=== PATIENT | male | born 1950 | race Caucasian/White ===

== ENCOUNTER 2018-09-13 18:09 | Inpatient (IN) | payer OTHER ==
[~2018-09-13] VITALS: Ht 180.3 cm; Wt 160.0 kg
--- NOTE | 2018-09-13 18:31 | NUR ---
SE RECIBE MASCULINO ALERTA Y ORIENTADO POR VARSHA ESFERAS EN AMBULANCIA.REFIERE QUE PRESENTA DIFICULTAD RESPIRATORIA Y PADECE DE COPD. PRESENTA NON REBREATHING MASK Y LLEGA SATURANDO 81% AL MOMENTO.
[2018-09-13] MEDS ORDERED: ATORVASTATIN CA40 MG (18:37)
[2018-09-13] MEDS ORDERED: CALCIUM 600 +1 EAC7 (18:38)
[2018-09-13] MEDS ORDERED: TAMS0.4C (18:38)
[2018-09-13] MEDS ORDERED: VITAMIN D400 UNI2 (18:38)
[2018-09-13] MEDS ORDERED: SERTRALINE HCL100 MG (18:39)
--- NOTE | 2018-09-13 18:55 | NUR ---
PT ALERTA Y ORIENTADO X3 ESFERAS SE LE ORIENTA SOBRE TX Y REFIERE ENTEDER. SE YARIEL MUESTRAS DE TADEO Y VENOPUNCION CON TECNICAS ASEPTICAS. SE ADMINSITRAN MEDICAMENTOS ORDEANDOS. PT TOLERA TX. PT CONECTADO A MONITOR CARDIACO Y SATUROMETRO DE PULSO.
--- NOTE | 2018-09-14 02:22 | NUR ---
SE RECIBE PACIENTE ALERTA Y ORIENTADO X3, EN CAMA CON BARANDAS ELEVADAS Y CABEZERA A 45 GRADOS, CONECTADO A MONITOR CARDIACO CON OXIMETRIA AREA DE VENOPUCION PATENTE Y RICARDO DE EDEMA EN SALINE LOCK. PACIENTE CON YAQUELIN MASCARILLA AL 100% DE OXIGENO.
--- NOTE | 2018-09-14 07:14 | NUR ---
SE RECIBE PTE ALERTA Y ORIENTADO EN LAS 3 ESFERAS EN CAMA CON BARANDAS ELEVADAS POR SEGURIDAD EN POSICION SEMI-SENTADO. CONECTADO A MONITOR CARDIACO, OXIMETRIA DE PULSO Y ASISTIDO POR YAQUELIN NON REBREATHING MASK AL 100% H/L EN BRAZO DERECHO, EL CUAL SE ENCUENTRA RICARDO DE EDEMA Y ERITEMA. PENDIENTE CONSULTA CON . SE ALINA A PTE EN CAMA CON BARANDAS ELEVADAS POR SEGURIDAD Y SE MANTIENE EN OBSERVACION POR CAMBIOS EN CONDICION MEDICA.
== END 2018-09-26 17:43 | disposition home or self-care (01) | DRG 190 ==
LOC: ER 18:09 → EDBD 18:55 → MEDI 09-14 12:42 → ICU-2 09-14 12:42 → MEDI 09-16 09:35
PROVIDERS: ADMIT Internal Medicine
PROC: 4A033R1 Measurement of Arterial Saturation, Peripheral, Percutaneous Approach (ICD-10-PCS; principal; 2018-09-14)
PROC: 3E0F7GC Introduction of Other Therapeutic Substance into Respiratory Tract, Via Natural or Artificial Opening (ICD-10-PCS; 2018-09-14)
PROC: 4A12X4Z Monitoring of Cardiac Electrical Activity, External Approach (ICD-10-PCS; 2018-09-14)
PROC: B246ZZZ Ultrasonography of Right and Left Heart (ICD-10-PCS; 2018-09-25)
DX: J44.1 Chronic obstructive pulmonary disease with (acute) exacerbation (principal); B37.1 Pulmonary candidiasis; Q79.1 Other congenital malformations of diaphragm; J98.11 Atelectasis; R09.02 Hypoxemia; Z99.81 Dependence on supplemental oxygen; E78.49 Other hyperlipidemia